=== PATIENT | male | born 1955 | race Caucasian/White ===

== ENCOUNTER → 2018-12-30 09:35 | Outpatient (CLI) | payer BC ==
[~2018-12-30 09:35] MED LIST: ASPIRIN81 MG PO; HYDROCODON-ACE1 EA10 PO; LISINOPRIL5 MG PO; LOPRESSOR25 MG PO; NIASPAN500 MG PO; PLAVIX75 MG PO; ZOCOR40 MG PO
--- NOTE | 2019-01-05 18:38 | ST ---
PATIENT:MAGGY UP MEDICAL RECORD: [id number] SEX: M LOCATION:[facility] ORDER #: ADMISSION DATE: 12/30/18 AGE OF PATIENT: 63 REFERRING PHYSICIAN: INTERPRETING PHYSICIAN: LINUS VASQUEZ MD DATE OF SERVICE: 12/30/2018 Nuclear Stress Test INDICATIONS: Angina and coronary artery disease, hypertension, and hyperlipidemia. PROCEDURE IN DETAIL: He was exercised on standard Lexiscan protocol with 32 mCi of sestamibi injected at peak stress, 11 mCi used previously for rest images. FINDINGS: Gated SPECT reveals preserved ejection fraction at 52% with good wall motioning and thickening and brightening throughout all segments. SPECT Imaging: Cardiolite was used as a myocardial perfusion agent, significant reversible changes inferiorly as well as laterally, which includes basal, mid apical, and inferior segments as well as the basal lateral and mid lateral segments. The degree of reversibility is moderate. The amount of myocardial involved is large. OVERALL IMPRESSION: This is a high-risk nuclear stress test with a large amount of myocardium involved inferiorly and laterally suggestive of multivessel coronary artery disease. We will proceed with coronary angiography as a follow-up study. TRANSINT:[id number] Voice Confirmation ID: [id number] DOCUMENT ID: [id number] LINUS VASQUEZ MD at 1838 CC: DC MOSS MD [id number] DICTATION DATE: 12/31/18 1225 INGREDIENT MIXER: 01/01/19 0043 DEP CLI 12/30/18 [place] [id number] [place] [id number]
[2019-01-06 09:35] VITALS: BMI 31.8
== END | disposition home or self-care (01) ==
LOC: D.HCCARDIO 09:35
PROVIDERS: ATTEND Internal Medicine Interventional Cardiology
DX: I25.10 Atherosclerotic heart disease of native coronary artery without angina pectoris (principal)

== ENCOUNTER 2019-01-06 08:45 | Outpatient (CLI) | payer BC ==
[~2019-01-06] VITALS: Ht 162.6 cm; Wt 84.1 kg
--- NOTE | ~2019-01-06 | HEMODYNAMI ---
PATIENT:MAGGY UP MEDICAL RECORD: [id number] : 57 LOCATION:D.CAT ADMISSION DATE: 01/06/19 Generatedon:01/06/201911:14 Patient name: MAGGY UP Patient #: [id number] SSN: : 1955 Date of study: 01/06/2019 Page: Of Hemodynamic Procedure Report Patient Data Patient Demographics Procedure consent was obtained First Name: MAGGY Gender: Male Last Name: ANNEL : 1955 [facility] Initial: WALKER Age: 63 year(s) Patient #: [id number] Race: Unknown Additional ID: [id number] Contact details Address: [address] [place] [address] State: [place] City: [place] Zip code: [address] Admission Admission Data Admission Date: 01/06/2019 Admission Time: 8:45 Lab Results Lab Result Date: 01/06/2019 Lab Result Time: 0:00 Biochemistry Name Units Result Min Max BUN mg/dl 13 --(--*-)-- 7 18 Creatinine mg/dl 1.2 --(---*)-- 0.6 1.3 CBC Name Units Result Min Max Hemoglobin g/dl 16.6 --(---*)-- 13.5 17.5 Procedure Procedure Types Cath Procedure Diagnostic Procedure LHC LHC w/Coronaries w/Grafts Sedation Charges Moderate Sedation up to 15 minutes PCI Procedure Coronary Stent Coronary Stent Initial x2 Procedure Description Procedure Date Procedure Date: 01/06/2019 Procedure Start Time: 10:49 Procedure End Time: 11:13 Procedure Staff Name Function Wilson Velarde MD Performing Physician Aurea Strong RT Monitor Jose Spear RT Scrub Jacqueline Guadalupe RT Scrub Ifrah Gilbert RN Nurse Procedure Data Cath Procedure Fluoroscopy Diagnostic fluoroscopy Total fluoroscopy Time: 6.1 time: 6.1 min min Diagnostic fluoroscopy Total fluoroscopy dose: dose: 1187 mGy 1187 mGy Contrast Material Contrast Material Type Amount (ml) Isovue 300 130 Entry Location Entry Primary Successful Side Size Upsize Upsize Entry Closure Succes sful Closure Location (Fr) 1 (Fr) 2 (Fr) Remarks Device Remarks Femoral Right 5 Fr 6 Fr Exoseal artery Short Estimated blood loss: 5 ml Diagnostic catheters Device Type Used For End Catheter Placement MULTIPACK Pigtail 5 Fr LV Angiography catheter MULTIPACK JL 4.0 5Fr Left Coronary catheter Angiography MULTIPACK 3DRC 5Fr Multi-vessel catheter Angiography Procedure Complications No complications Procedure Medications Medication Administration Route Dosage 0.9% NaCl I.V. 100 ml/hr Oxygen etCO2 Nasal cannula 2 l/min Lidocaine 2% added to field 20 Heparin Flush Bag added to field 2 bags (1000units/500ml NS) Versed I.V. 2 mg Fentanyl I.V. 50 mcg Heparin Bolus I.V. 4000 units Integrilin (Bolus I.V. 7.3 ml 2mg/ml) Nitroglycerin IC/IA I.C. 200 mcg Plavix P.O. 600 mg Fentanyl I.V. 50 mcg Hemodynamics Rest HGB: 16.6 (g/dl) Heart Rate: 63 (bpm) Pressure Samples Time Site Value (mmHg) Purpose Heart Use Rate(bpm) 10:52 LV 125/10,122 Snapshot 67 Snapshots Pre Cath Intra NCS Post Cath Vital Signs Time Heart Resp SPO2 etCO2 NIBP Rhythm Pain Sedation Rate (ipm) (%) (mmHg) (mmHg) Status Level (bpm) 10:33:53 60 16 99 32.2 107/65(88) NSR 0 (11) 10(A) , No pain 10:38:38 63 13 98 25.5 123/76(98) NSR 0 (11) 10(A) , No pain 10:42:24 63 12 98 33 116/73(98) NSR 0 (11) 10(A) , No pain 10:49:58 62 10 97 37.5 108/61(84) NSR 0 (11) 9(A) , No pain 10:54:57 62 10 98 36.8 Measuring NSR 0 (11) 9(A) , No pain 11:03:52 64 10 98 38.2 Measuring NSR 0 (11) 9(A) , No pain 11:06:01 62 12 96 36.7 104/52(87) NSR 0 (11) 9(A) , No pain 11:10:15 63 10 97 39 99/61(78) NSR 0 (11) 10(A) , No pain Medications Time Medication Route Dose Verified Delivered Reason Notes Effectiveness by by 10:35:21 0.9% NaCl I.V. 100 Wilson Mckeona used for ml/hr Prachi Gilbert vice president of manufacturing 10:35:27 Oxygen etCO2 2 Wilson Mckeona used for Nasal l/min Prachi Gilbert procedure cannula RN 10:35:33 Lidocaine 2% added 20ml Wilson Rachel for local to vial Prachi Velarde MD anesthetic field 10:35:38 Heparin Flush added 2 Wilson Talbertrey used for Bag to bags Prachi Velarde MD procedure (1000units/500ml field NS) 10:41:38 Versed I.V. 2 mg Wilson Mckeona for sedation Prachi Gilbert RN 10:41:51 Fentanyl I.V. 50 Wilson Mckeona for sedation mcg Prachi Gilbert RN 10:46:29 Fentanyl I.V. 50 Wilson Mckeona for sedation mcg Prachi Gilbert RN 11:00:09 Heparin Bolus I.V. 4000 Wilson Rg for verif ied units Prachi Gilbert anticoagulation with Dr. ASAF Velarde 11:02:24 Integrilin I.V. 7.3 Wilson Rg for waste d (Bolus 2mg/ml) ml Prachi Gilbert antiplatelet 2.7mL RN therapy 11:02:42 Nitroglycerin I.C. 200 Wilson Rachel for IC/IA mcg Prachi Velarde MD vasodilation 11:04:58 Plavix P.O. 600 Wilson Rg for mg Prachi Gilbert antiplatelet RN therapy Procedure Log Time Note 10:26:34 Diagnostic Cath Status : Elective 10:27:39 Ifrah Gilbert RN sent for patient. Start room use. 10:27:40 Time tracking: Regular hours (M-F 7:00 - 5:00) 10:27:44 Plan of Care:Hemodynamics will remain stable., Cardiac rhythm will remain stable., Comfort level will be maintained., Respiratory function will remain adequate., Patient/ family verbilizes understanding of procedure., Procedure tolerated without complication., Recovers from procedure without complications.. 10:28:15 Patient received from Pre/Post Procedure Room to CCL 2 Alert and oriented. Tansferred to table in Supine position. 10:28:17 Warm blankets applied, and tracey hugger turned on for patient comfort. 10:28:17 Correct patient and procedure confirmed by team. 10:28:19 Signed procedure consent form obtained from patient. 10:28:20 ECG and BP/O2 sat monitors applied to patient. 10:33:02 Vital chart was started 10:33:29 Baseline sample Acquired. 10:33:33 Rhythm: sinus rhythm 10:33:36 Full Disclosure recording started 10:34:02 H&P Date Dictated: 12/18/2018 Within 30 days and on chart., H&P Addendum completed by physician on day of procedure. (MUST COMPLETE FOR ALL OUTPATIENTS). 10:34:04 Pre-procedure instructions explained to patient. 10:34:04 Pre-op teaching completed and patient verbalized understanding. 10:34:07 Family in patients room. 10:34:09 Patient NPO since Midnight. 10:34:11 Is the patient allergic to Iodine/contrast media? No. 10:34:20 Is patient on blood thinner?No 10:34:22 Patient diabetic? No. 10:34:25 Previous problem with sedation/anesthesia? No ? 10:34:27 Snore? Yes 10:34:27 Sleep apnea? Yes 10:34:29 Deviated septum? No 10:34:29 Opens mouth fully? Yes 10:34:30 Sticks out tongue? Yes 10:34:36 Airway obstruction? No ? 10:34:39 Dentures? No ? 10:34:43 Pre procedure: right dorsailis pedis pulse 2+ Normal; easily identifiable; not easily obliterated 10:34:45 Pre procedure: left dorsailis pedis pulse 2+ Normal; easily identifiable; not easily obliterated 10:34:46 Patient pain scale 0/10 ?. 10:34:58 IV patent on arrival in left forearm with 0.9% NaCl at [facility]. 10:35:01 Lab results completed and on chart. 10:35:09 Right groin area was prepped with chlora-prep and draped in sterile fashion 10:35:11 Alarms reviewed by R. N. 10:35:11 Sharps counted by scrub and verified by R.N. 10:35:21 0.9% NaCl 100 ml/hr I.V. was administered by Ifrah Vladimir RN; used for procedure; 10:35:27 Oxygen 2 l/min etCO2 Nasal cannula was administered by Ifrah Gilbert RN; used for procedure; 10:35:33 Lidocaine 2% 20ml vial added to field was administered by Wilson Velarde MD; for local anesthetic; 10:35:38 Heparin Flush Bag (1000units/500ml NS) 2 bags added to field was administered by Wilson Velarde MD; used for procedure; 10:39:58 Physician arrived 10:39:58 --------ALL STOP TIME OUT------ 10:39:59 Final Timeout: patient, procedure, and site verified with staff and physician. All members of the team are in agreement. 10:40:02 Right groin site verified by team. 10:40:05 Fire Safety Assessment: A--An alcohol-based skin anteseptic being used preoperatively., C--Open oxygen or nitrous oxide is being used., D--An ESU, laser, or fiber-optic light is being used. 10:40:08 Physical assessment completed. ASA score P 2 - A patient with mild systemic disease as per Wilson Velarde MD. 10:41:38 Versed 2 mg I.V. was administered by Ifrah Gilbert RN; for sedation; 10:41:51 Fentanyl 50 mcg I.V. was administered by Ifrah Gilbert RN; for sedation; 10:43:38 2) 60-89 Mildly reduced kidney function, and other findings (as for stage 1) point to kidney disease. 10:43:58 Maximum allowable contrast does (3.7 X eGFR X 0.75)180 ml. 10:44:02 Sedation plan: IV Moderate Sedation Medication:Versed, Fentanyl 10:44:19 Lab Result : Creatinine 1.2 mg/dl 10:44:19 Lab Result : BUN 13 mg/dl 10:44:19 Lab Result : Hemoglobin 16.6 g/dl 10:44:35 Use device set Femoral Dx 10:44:36 ACIST Syringe (02447) opened to sterile field. 10:44:36 Bag Decanter () opened to sterile field. 10:44:36 Medline Cath Pack ([id number]) opened to sterile field. 10:44:38 ACIST Hand Control (07877) opened to sterile field. 10:44:38 ACIST Manifold (23700) opened to sterile field. 10:44:38 DIAGNOSTIC Multipack 5Fr catheter set ([id number]) opened to sterile field. 10:44:39 Tegaderm 4 x 4 (1626W) opened to sterile field. 10:44:41 EMERALD Guide Wire (502-669) opened to sterile field. 10:44:41 SHEATH 5FR Marcellus (JZZ653) opened to sterile field. 10:45:06 EXOSEAL 5Fr (EX500) opened to sterile field. 10:46:29 Fentanyl 50 mcg I.V. was administered by Ifrah Gilbert RN; for sedation; 10:48:30 Procedure started. 10:49:44 Local anesthetic to right femoral artery with Lidocaine 2% by Wilson Velarde MD.INITIAL ACCESS ONLY 10:49:52 A 5 Fr sheath was inserted into the Right Femoral artery 10:51:42 A MULTIPACK Pigtail 5 Fr catheter was advanced over the wire and used for LV Angiography. 10:52:41 LV hemodynamics recorded. 10:52:42 LV gram done using GUZMAN 10:52:44 Injector settings: Ml/sec: 5, Volume: 15, 10:52:57 EF : 50 % 10:53:00 Catheter removed. 10:53:06 A MULTIPACK JL 4.0 5Fr catheter was advanced over the wire and used for Left Coronary Angiography. 10:53:30 LCA angiography performed. 10:53:33 Injector settings: Ml/sec: 3, Volume: 6, 10:54:33 Catheter removed. 10:54:38 A MULTIPACK 3DRC 5Fr catheter was advanced over the wire and used for Multi-vessel Angiography. 10:55:36 MARTIN to Circ angiography performed. 10:55:48 RCA angiography performed. 10:55:55 Injector settings: Ml/sec: 3, Volume: 6, 10:58:27 Catheter removed. 10:58:49 GUIDE 6FR XBLAD 4.0 catheter ([id number]) opened to sterile field. 10:58:49 INFLATOR Merit BasixCompak (LW1168) opened to sterile field. 10:58:50 CHOICE PT Extra Support 182cm wire ([id number]) opened to sterile field. 10:58:55 SHEATH 6FR Marcellus (HSG251) opened to sterile field. 10:58:59 Proceeding to intervention. 10:59:07 Sheath upsized to a 6 Fr Short. 11:00:09 Heparin Bolus 4000 units I.V. was administered by Ifrah Gilbert RN; for anticoagulation; verified with Dr. Velarde 11:01:57 6 Fr xblad 4 guide catheter was inserted over the wire 11:02:02 choice pt wire advanced. 11:02:03 Wire advanced across lesion. 11:02:24 Integrilin (Bolus 2mg/ml) 7.3 ml I.V. was administered by Ifrah Gilbert RN; for antiplatelet therapy; wasted 2.7mL 11:02:39 Place stent Inflation Number: 1 A NELIA RX 2.5 x 15 stent ([id number]) was prepped and advanced across the Prox LAD 85. The stent was deployed at 15 KAMAR for 0:10 (min:sec) . 11:02:42 Nitroglycerin IC/IA 200 mcg I.C. was administered by Wilson Velarde MD; for vasodilation; 11:04:58 Plavix 600 mg P.O. was administered by Ifrah Gilbert RN; for antiplatelet therapy; 11:05:08 Stent catheter was removed intact over wire. 11:05:11 Wire removed. 11:05:12 Guide catheter removed. 11:05:26 GUIDE 6FR AR 2.0 catheter ([id number]) opened to sterile field. 11:05:37 6 Fr ar 2 guide catheter was inserted over the wire 11:05:43 choice pt wire advanced. 11:08:28 Inflation number: 1 The stent balloon was then re-inflated across the R PDA to 7 KAMAR for 0:10 (min:sec) . 11:08:32 Stent catheter was removed intact over wire. 11:09:52 Place stent Inflation Number: 2 A NELIA RX 2.5 x 08 stent ([id number]) was prepped and advanced across the R PDA 80. The stent was deployed at 11 KAMAR for 0:10 (min:sec) . 11:10:36 Stent catheter was removed intact over wire. 11:10:36 Wire removed. 11:10:37 Guide catheter removed. 11:11:21 EXOSEAL 6Fr (EX600) opened to sterile field. 11:11:32 Sheath removed intact; hemostasis achieved with Exoseal to the Right Femoral artery. 11:11:34 Procedure ended.(Physican Out) 11:11:44 Fluoroscopy time 06.10 minutes. 11:11:48 Fluoroscopy dose: 1187 mGy 11:11:48 Flurop Dose total: 1187 11:11:55 Contrast amount:Isovue 300 130ml. 11:12:06 Sharps counted by scrub and verified by R.N. 11:12:23 Insertion/operative site no bleeding no hematoma. 11:12:26 Post-op/insertion site Right Femoral artery dressed using a 4 x 4 and Tegaderm. 11:12:29 Post procedure rhythm: unchanged. 11:12:32 Estimated blood loss: 5 ml 11:12:33 Post procedure instruction explained to patient.Patient verbalizes understanding. 11:12:33 Patient needs reinforcement of post procedure teaching. 11:13:01 Procedure type changed to Cath procedure, Diagnostic procedure, LHC, LHC w/Coronaries w/Grafts, Sedation Charges, Moderate Sedation up to 15 minutes, PCI procedure, Coronary Stent, Coronary Stent Initial x2 11:13:01 Procedure and supply charges have been captured, reviewed, submitted and are correct. 11:13:05 Procedure Complication : No complications 11:13:08 Vital chart was stopped 11:13:08 See physician's report for complete and final results. 11:13:11 Report given to Pre/Post Procedure Room. 11:13:13 Patient transfered to Pre/Post Procedure Room with Stretcher. 11:13:16 Procedure ended. 11:13:16 Full Disclosure recording stopped 11:13:24 ACC-PCI Only Patient was given prescriptions, or instructed by Wilson Velarde MD to start/continue the following medications upon discharge: Plavix 11:13:25 End room use (Document Last) Intervention Summary Intervention Notes Time ActionType Lesion and Equipment Used Action# Pressure Duration Attributes 11:02:39 Place stent Prox LAD NELIA RX 2.5 x 1 15 00:10 15 stent ([id number]) 11:08:28 Reinflate R PDA NELIA RX 2.5 x 1 7 00:10 stent 15 stent balloon ([id number]) 11:09:52 Place stent R PDA NELIA RX 2.5 x 2 11 00:10 08 stent ([id number]) Device Usage Item Name Manufacture Quantity Catalog Number Hospital Part Current M inimal Lot# / Charge Number Stock Stock Serial# Code ACIST Syringe Acist 1 59580 175730 721105 115924 2 0 (68434) Medical Systems Inc Bag Decanter Microtek 1 169866 53763 875409 5 () Medical Inc. Medline Cath Medline 1 [id number] 322694 47836 499308 5 Pack ([id number]) ACIST Hand Acist 1 38838 236197 537858 275890 5 Control Medical (64686) Systems Inc ACIST Manifold Acist 1 81442 279437 222967 985125 5 (14227) Medical Systems Inc DIAGNOSTIC Cardinal 1 MP4745 144727 03309 280527 3 0 Multipack 5Fr Health catheter set (CM0305) Tegaderm 4 x 4 3M 1 1626W 318008 446810 731713 5 (1626W) EMERALD Guide Cardinal 1 502-455 931421 621668 164701 5 Wire (502-455) Health SHEATH 5FR Terumo 1 UPP264 210777 958526 188616 5 Marcellus (MUT418) EXOSEAL 5Fr Cardinal 1 EX500 765626 494018 269932 1 0 (EX500) Health MULTIPACK Cardinal 1 866687 5 Pigtail 5 Fr Health catheter MULTIPACK JL Cardinal 1 516072 5 4.0 5Fr Health catheter MULTIPACK 3DRC Cardinal 1 162070 5 5Fr catheter Health GUIDE 6FR Cardinal 1 [id number] 501721 562049 891688 3 XBLAD 4.0 Health catheter (14058919) INFLATOR Merit Merit 1 LW3785 262137 180809 698621 1 5 Factor.io (RL5097) CHOICE PT [place] 1 [id number] 293965 031933 160420 5 Extra Support Scientific 182cm wire ([id number]) SHEATH 6FR Terumo 1 JGW249 505347 262809 567762 4 0 Marcellus (ABZ467) NELIA RX 2.5 x Medtronic 1 [id number] 675564 5481630 203246 5 [id number] 15 stent ([id number]) GUIDE 6FR AR Medtronic 1 OB0SB57 613112 76441 105536 1 2.0 catheter (OA0MX23) NELIA RX 2.5 x Medtronic 1 [id number] 981758 7188493 485731 5 [id number] 08 stent ([id number]) EXOSEAL 6Fr Cardinal 1 EX600 719851 682088 854783 1 0 (EX600) Health Signature Audit [place] Stage Time Signature Unsigned Intra-Procedure 01/06/2019 Aurea Strong 11:14:39 AM RT(R) Signatures Performing Physician : Signature : Wilson Velarde MD Date : Time : Monitor : Aurea Strong RT Signature : Date : Time : Nurse : Ifrah Gilbert RN Signature : Date : Time : [place] [address] [place] [address]
--- NOTE | ~2019-01-06 | OP ---
PATIENT NAME: MAGGY UP MEDICAL RECORD: [id number] :57 LOCATION:D.CAT ADMISSION DATE: SURGEON: LINUS VASQUEZ MD DATE OF OPERATION: 01/06/2019 PROCEDURES: 1. PTCA stent LAD. 2. PTCA stent to RCA. 3. Left heart catheterization. 4. Selective coronary angiography. 5. MARTIN angiography. 6. Left ventriculogram. INDICATION: Unstable angina and coronary artery disease. PROCEDURE IN DETAIL: After informed status obtained and after a detailed description of risks, benefits as well as alternative therapies, the patient elected to proceed with angiogram and angioplasty. The right femoral area was prepped and draped in normal sterile fashion. Right femoral artery was cannulated via modified Seldinger technique with placement of 6-Sudanese sheath. All catheters exchanged through this sheath. FINDINGS: The left ventriculogram was performed in a standard 30-degree GUZMAN view, reveals good cardiac wall motion, ejection fraction 50%. SELECTIVE CORONARY ANGIOGRAPHY: 1. Left main is with no significant angiographic disease. 2. Left anterior descending has 85% to 90% stenosis in the mid vessel. 3. MARTIN to the LAD is closed. 4. Left circumflex has 90% stenosis proximally. 5. MARTIN to the circumflex is open and it appears that the MARTIN was in a skipped fashion and it is closed at the anastomosis of the LAD, but does continue on patently to the circumflex. Distal circumflex is patent. 6. The right coronary artery has previously placed stents in the distal aspect; however, the PDA has a 90% stenosis at its ostium. This correlates with the inferior perfusion defect on nuclear stress testing. PTCA STENT OF THE LAD AND RCA: LAD was addressed with a 2.5 x 15 mm Minter and the RCA, PDA with a 2.5 x 8 mm Rony. Result was 0% residual stenosis. OVERALL IMPRESSION: Successful PTCA stent of the RCA PDA as well as the LAD, both going from 85% to 90% initial stenosis to 0% residual. TRANSINT:[id number] Voice Confirmation ID: [id number] DOCUMENT ID: [id number] LINUS VASQUEZ MD CC: [id number] DICTATION DATE: 01/06/19 1115 MENTAL HYGIENIST: 01/06/19 1123 REG [facility] [address] [place] [address]
[2019-01-06] MEDS ORDERED: HYDROCODON-ACE1 EA10 PO (09:16)
[2019-01-06] MEDS ORDERED: LISINOPRIL5 MG PO (09:17)
[2019-01-06] MEDS ORDERED: ZOCOR40 MG PO (09:17)
[2019-01-06] MEDS ORDERED: LOPRESSOR25 MG PO (09:17)
[2019-01-06] MEDS ORDERED: ASPIRIN81 MG PO (09:21)
[2019-01-06] MEDS ORDERED: NIASPAN500 MG PO (09:21)
[2019-01-06 09:35] VITALS: BP 130/68; Ht 162.6 cm; Wt 84.1 kg
[2019-01-06 10:07] LABS: BASOPHILS 0.4 % (0-2); EOSINOPHILS 5.1 % (0-7); HEMATOCRIT 47.2 % (42.0-54.0); HEMOGLOBIN 16.6 g/dL (13.5-17.5); IMMATURE GRANULOCYTES 0.1 % (0-5); LYMPHOCYTES 31.3 % (15-50); MCH 31.6 pg (26.0-34.0); MCHC 35.2 g/dL (31.0-37.0); MCV 89.9 fL (80.0-100.0); MEAN PLATELET VOLUME 9.9 fL (7.4-10.4); MONOCYTES 9.9 % (2-11); NEUTROPHILS 53.2 % (40-80); PLATELET COUNT 159 10x3/uL (130-400); RBC 5.25 10x6/uL (4.20-6.10); RDW 12.8 % (11.5-14.5); WBC 7.5 10x3/uL (4.8-10.8)
[2019-01-06 10:12] LABS: ANION GAP 9.2 mmol/L (8-16); CALCIUM 8.8 mg/dL (8.5-10.1); CARBON DIOXIDE 29.1 mmol/L (21.0-32.0); CREATININE - SERUM 1.2 mg/dL (0.6-1.3); POTASSIUM - SERUM 4.3 mmol/L (3.5-5.1)
--- NOTE | 2019-01-06 11:30 | NUR ---
PT RECEIVED VIA STRETCHER FROM [employer] FOR RECOVERY. PT SLEEPING BUT VERBALLY AROUSABLE. 6FR EXOCELE TO R GROIN, AREA SOFT TO TOUCH, DRESSING CDI NO BLEEDING OR SWELLING NOTED. LEG PINK AND WARM, PEDAL PULSES PALPABLE. IV PATENT INFUSING VIA ORDERS. HR NSR RATE 60, BP 125/70, 02 PLACED AT 2L/NC, SAT 99. PT INSTRUCTED TO KEEP HEAD ON PILLOW AND LEG STRAIGHT, HE VERBALIZED UNDERSTANDING. HE C/O SLIGHT HEARTBURN, EXPLAINED THAT IT IS DUE TO THE PLAVIX, WATER GIVEN. BEAR HUGGER ON, PT C/O OF "FREEZING". CALL LIGHT IN REACH, DENIES ANY OTHER DISCOMFORT OR NEEDS
[2019-01-06] MEDS ORDERED: PLAVIX75 MG PO (11:33)
--- NOTE | 2019-01-06 12:00 | NUR ---
PT SLEEPING COMFORTABLY, R GROIN SOFT, DRESSING REMAINS CDI NO BLEEDING OR HEMATOMA NOTED. LEG PINK AND WARM, PEDAL PULSES PALPABLE. VSS. CALL LIGHT IN REACH, FRIEND AT BEDSIDE.
--- NOTE | 2019-01-06 12:45 | NUR ---
PT STILL SLEEPING, VERBALLY AROUSABLE. R GROIN REMAINS SOFT, DRESSING CDI NO BLEEDING OR HEMATOMA NOTED. VSS. FRIEND REMAINS AT BEDSIDE, CALL LIGHT IN REACH.
--- NOTE | 2019-01-06 13:15 | NUR ---
PT WAKING UP SOME, DENIES PAIN OR DISCOMFORT. BEAR HUGGER TURNED OFF PER PT REQUEST. NO CHANGE IN GROIN, DRESSING REMAINS CDI NO BLEEDING OR SWELLING NOTED. R LEG PINK AND WARM, PEDAL PULSES PALPABLE. HR 63, BP 92/59. FLUIDS OPENED FOR BOLUS. CALL LIGHT IN REACH
--- NOTE | 2019-01-06 13:45 | NUR ---
PT AWAKE VISITING WITH FRIEND. GROIN SOFT, DRESSING CDI NO BLEEDING OR SWELLING NOTED. PEDAL PULSES PALPABLE. VSS. PT DENIES PAIN OR NEEDS AT THIS TIME. COLA SERVED.
--- NOTE | 2019-01-06 14:17 | NUR ---
SANDWICH TRAY OFFERED, REFUSED AT THIS TIME. 650 CC CLEAR YELLOW URINE EMPTIED FROM URINAL. GROIN REMAINS W/O BLEDDING OR SWELLING. LEP PINK AND WARM, PEDAL PULSES PALPABLE. CALL LIGHT IN REACH
--- NOTE | 2019-01-06 14:45 | NUR ---
O2 REMOVED, PT RESTING W EYES CLOSED. DENIES PAIN OR NEEDS AT THIS TIME. GROIN W/O BLEEDING OR SWELLING. CALL LIGHT IN REACH. VSS
--- NOTE | 2019-01-06 15:00 | NUR ---
DISCHARGE INSTRUCTIONS REVIEWED W PT AND FRIEND, BOTH VERBALIZED UNDERSTANDING. IV REMOVED W CATH INTACT, MONITORS REMOVED. 1510 PT UP TO DRESS FOR DISCHARGE.
--- NOTE | 2019-01-06 15:15 | NUR ---
PT TO BR VIA WC, VOIDING W/O DIFFICULITY. PT DISCHARGED TO PRIVATE VEHICLE VIA WC WITH ALL BELONGINGS
== END 2019-01-06 15:20 | disposition home or self-care (01) ==
LOC: D.CATH 08:45
PROVIDERS: ATTEND Internal Medicine Interventional Cardiology
DX: I25.110 Atherosclerotic heart disease of native coronary artery with unstable angina pectoris (principal); I25.710 Atherosclerosis of autologous vein coronary artery bypass graft(s) with unstable angina pectoris; Z95.5 Presence of coronary angioplasty implant and graft; Z01.812 Encounter for preprocedural laboratory examination

== ENCOUNTER → 2019-09-08 09:49 | Outpatient (CLI) | payer MEDICAID ==
[2019-01-06 09:35] VITALS: BMI 31.8
== END | disposition home or self-care (01) ==
LOC: D.HCCARDIO 09:49
PROVIDERS: ATTEND Internal Medicine Cardiovascular Disease
DX: I25.10 Atherosclerotic heart disease of native coronary artery without angina pectoris (principal)

== ENCOUNTER 2019-09-21 07:40 | Outpatient (CLI) | payer MEDICAID ==
[~2019-09-21] VITALS: Ht 162.6 cm; Wt 81.4 kg
--- NOTE | ~2019-09-21 | HEMODYNAMI ---
PATIENT:MAGGY UP MEDICAL RECORD: [id number] : 57 LOCATION:[facility] ADMISSION DATE: 09/21/19 Generatedon:09/21/201912:41 Patient name: MAGGY UP Patient #: [id number] SSN: : 1955 Date of study: 09/21/2019 Page: Of Hemodynamic Procedure Report Patient Data Patient Demographics Procedure consent was obtained First Name: MAGGY Gender: Male Last Name: ANNEL : 1955 [facility] Initial: WALKER Age: 64 year(s) Patient #: [id number] Race: Unknown Additional ID: [id number] Contact details Address: [address] [place] [address] State: [place] City: [place] Zip code: [address] Past Medical History Allergies: No known allergies Admission Admission Data Admission Date: 09/21/2019 Admission Time: 7:40 Arrival Date: 09/21/2019 Arrival Time: 0:00 Height (in.): 64 BSA: 1.86 (m2) Height (cm.): 162.56 BMI: 30.65 (kg/m2) Weight (lbs.): 178.58 Weight (kg.): 81 Lab Results Lab Result Date: 09/21/2019 Lab Result Time: 0:00 Biochemistry Name Units Result Min Max BUN mg/dl 14 --(--*-)-- 7 18 Creatinine mg/dl 1.1 --(--*-)-- 0.6 1.3 eGFR ml/min 72 *-(----)-- 90 120 NONAFRICAN CBC Name Units Result Min Max Hematocrit % 48.1 --(--*-)-- 42 54 Hemoglobin g/dl 15.9 --(--*-)-- 13.5 17.5 Procedure Procedure Types Cath Procedure Diagnostic Procedure LHC LHC w/Coronaries w/Grafts FFR/IVUS FFR Initial FFR Additional Sedation Charges Moderate Sedation up to 15 minutes PCI Procedure Coronary Stent Coronary Stent Initial x2 Hemochron ACT Test Procedure Description Procedure Date Procedure Date: 09/21/2019 Procedure Start Time: 12:10 Procedure End Time: 12:37 Procedure Staff Name Function Wilson Velarde MD Performing Physician Aspen Stern RT Monitor Jacqueline Guadalupe RT Scrub Ifrah Gilbert RN Nurse Procedure Data Cath Procedure Fluoroscopy Diagnostic fluoroscopy Total fluoroscopy Time: 5.4 time: 5.4 min min Diagnostic fluoroscopy Total fluoroscopy dose: 810 dose: 810 mGy mGy Contrast Material Contrast Material Type Amount (ml) Isovue 300 132 Entry Location Entry Primary Successful Side Size Upsize Upsize Entry Closure Succes sful Closure Location (Fr) 1 (Fr) 2 (Fr) Remarks Device Remarks Femoral Right 5 Fr 6 Fr Exoseal artery Short Estimated blood loss: 10 ml Diagnostic catheters Device Type Used For End Catheter Placement MULTIPACK Pigtail 5 Fr Procedure catheter MULTIPACK JL 4.0 5Fr Procedure catheter MULTIPACK 3DRC 5Fr Procedure catheter DIAGNOSTIC AR2 MOD 5 Fr Procedure catheter ([id number]) Procedure Complications No complications Procedure Medications Medication Administration Route Dosage 0.9% NaCl I.V. 100 ml/hr Oxygen etCO2 Nasal cannula 2 l/min Lidocaine 2% added to field 20 Heparin Flush Bag added to field 2 bags (1000units/500ml NS) Versed I.V. 2 mg Fentanyl I.V. 50 mcg Versed I.V. 2 mg Fentanyl I.V. 50 mcg Heparin Bolus I.V. 4000 units Integrilin (Bolus I.V. 7.3 ml 2mg/ml) Integrilin (Bolus wasted 2.7 ml 2mg/ml) Plavix P.O. 600 mg Hemodynamics Rest BSA: 1.86 (m2) HGB: 15.9 (g/dl) O2 Consumption: Estimated: 204.89 (ml/min) O2 Co nsumption indexed: Estimated:110.16 (ml/min/m) Heart Rate: 52 (bpm) Snapshots Pre Cath Intra NCS Post Cath Vital Signs Time Heart Resp SPO2 etCO2 NIBP (mmHg) Rhythm Pain Sedation Rate (ipm) (%) (mmHg) Status Level (bpm) 12:01:03 52 10 98 38.5 138/77(90) SB 0 (11) 10(A) , No pain 12:05:23 57 30 99 21.1 138/79(110) SB 0 (11) 10(A) , No pain 12:09:41 57 20 99 12.8 128/76(95) SB 0 (11) 10(A) , No pain 12:13:51 63 14 97 33.2 118/75(89) NSR 0 (11) 10(A) , No pain 12:18:05 64 16 97 40.8 127/71(100) NSR 0 (11) 9(A) , No pain 12:22:21 64 35 98 43 121/71(87) NSR 0 (11) 9(A) , No pain 12:26:37 64 18 99 44.5 118/68(82) NSR 0 (11) 9(A) , No pain 12:30:51 64 12 100 43 118/66(88) NSR 0 (11) 10(A) , No pain 12:35:01 65 16 100 36.9 138/84(112) NSR 0 (11) 10(A) , No pain Medications Time Medication Route Dose Verified Delivered Reason Notes Effectiveness by by 12:02:03 0.9% NaCl I.V. 100 Wilson Ifrah used for ml/hr Prachi Gilbert relief map modeler 12:02:09 Oxygen etCO2 2 Wilson Ifrah used for Nasal l/min Prachi Gilbert procedure cannula RN 12:02:14 Lidocaine 2% added 20ml Wilson Wilson for local to vial Prachi Velarde MD anesthetic field 12:02:18 Heparin Flush added 2 Wilson Wilson used for Bag to bags Prachi Velarde MD procedure (1000units/500ml field NS) 12:09:47 Versed I.V. 2 mg Wilson Ifrah for sedation Prachi Gilbert RN 12:09:54 Fentanyl I.V. 50 Wilson Ifrah for sedation mcg Prachi Gilbert RN 12:14:36 Versed I.V. 2 mg Wilson Ifrah for sedation Prachi Gilbert RN 12:14:42 Fentanyl I.V. 50 Wilson Ifrah for sedation mcg Prachi Gilbert RN 12:20:00 Heparin Bolus I.V. 4000 Wilson Ifrah for verif ied units Prachi Gilbert anticoagulation with Dr. ASAF Velarde 12:20:14 Integrilin I.V. 7.3 Wilson Ifrah for (Bolus 2mg/ml) ml Prachi Gilbert antiplatelet RN therapy 12:34:26 Integrilin wasted 2.7 Wilson Rg for (Bolus 2mg/ml) ml Prachi Gilbert antiplatelet RN therapy 12:34:32 Plavix P.O. 600 Wilson Rg for mg Prachi Gilbert antiplatelet RN therapy Procedure Log Time Note 11:35:41 Informed consent obtained and on chart 11:36:02 Procedure Status Elective Heart Cath (OP). 11:36:03 Time tracking: Regular hours (M-F 7:00 - 5:00) 11:36:07 Plan of Care:Hemodynamics will remain stable., Cardiac rhythm will remain stable., Comfort level will be maintained., Respiratory function will remain adequate., Patient/ family verbilizes understanding of procedure., Procedure tolerated without complication., Recovers from procedure without complications.. 11:36:09 Ifrah Gilbert RN sent for patient. Start room use. 11:36:12 H&P Date Dictated: 09/21/2019 New H&P dictated by physician.. 11:38:29 Patient allergic to No known allergies 11:38:56 Lab Result : BUN 14 mg/dl 11:38:56 Lab Result : Creatinine 1.1 mg/dl 11:38:56 Lab Result : Hemoglobin 15.9 g/dl 11:38:56 Lab Result : eGFR NONAFRICAN 72 ml/min 11:38:56 Lab Result : Hematocrit 48.1 % 11:39:07 Patient Weight : 178.58 lbs 11:39:09 Patient Height : 64 inches 11:39:18 Arrival Date: 09/21/2019 12:00:00 AM 11:39:52 Procedure type changed to Cath procedure, Diagnostic procedure, LHC, LHC w/Coronaries w/Grafts, FFR/IVUS, FFR Initial, FFR Additional, Sedation Charges, Moderate Sedation up to 15 minutes, PCI procedure, Coronary Stent, Coronary Stent Initial x2, Hemochron ACT Test 11:40:43 Stress Test: yes; abnormal INFERIOR AND LATERAL 11:59:57 Patient received from Pre/Post Procedure Room to CCL 1 Alert and oriented. Tansferred to table in Supine position. 11:59:58 Warm blankets applied, and tracey hugger turned on for patient comfort. 11:59:58 Correct patient and procedure confirmed by team. 11:59:59 ECG and BP/O2 sat monitors applied to patient. 12:00:01 Vital chart was started 12:00:04 Baseline sample Acquired. 12:00:09 Rhythm: sinus bradycardia 12:00:11 Full Disclosure recording started 12:02:03 0.9% NaCl 100 ml/hr I.V. was administered by Ifrah Gilbert RN; used for procedure; Verbal order read back and verified. 12:02:09 Oxygen 2 l/min etCO2 Nasal cannula was administered by Ifrah Gilbert RN; used for procedure; Verbal order read back and verified. 12:02:14 Lidocaine 2% 20ml vial added to field was administered by Wilson Velarde MD; for local anesthetic; Verbal order read back and verified. 12:02:18 Heparin Flush Bag (1000units/500ml NS) 2 bags added to field was administered by Wilson Velarde MD; used for procedure; Verbal order read back and verified. 12:02:20 Pre-procedure instructions explained to patient. 12:02:21 Pre-op teaching completed and patient verbalized understanding. 12:02:23 Family unavailable. 12:02:24 Patient NPO since Midnight. 12:02:33 Is the patient allergic to Iodine/contrast media? No. 12:02:34 Is patient on blood thinner?No 12:02:36 Patient diabetic? No. 12:02:38 Previous problem with sedation/anesthesia? No ? 12:02:40 Snore? Yes 12:02:41 Sleep apnea? No 12:02:41 Deviated septum? No 12:02:42 Opens mouth fully? Yes 12:02:43 Sticks out tongue? Yes 12:02:45 Airway obstruction? No ? 12:02:51 Dentures? No BRIDGE 12:02:55 Pre procedure: right dorsailis pedis pulse 1+ Palpable, but thready & weak; easily obliterated 12:02:58 Patient pain scale 0/10 ?. 12:03:12 IV patent on arrival in left forearm with 0.9% NaCl at [facility]. 12:03:16 Lab results completed and on chart. 12:03:19 Right groin area was prepped with chlora-prep and draped in sterile fashion 12:03:20 Alarms reviewed by R. N. 12:03:20 Sharps counted by scrub and verified by R.N. 12:05:03 Use device set Femoral Dx 12:05:04 ACIST Syringe (57007) opened to sterile field. 12:05:04 Bag Decanter (2002S) opened to sterile field. 12:05:09 ACIST Hand Control (52792) opened to sterile field. 12:05:09 ACIST Manifold (23120) opened to sterile field. 12:05:10 Tegaderm 4 x 4 (1626W) opened to sterile field. 12:05:11 Medline Cath Pack ([id number]) opened to sterile field. 12:05:12 DIAGNOSTIC Multipack 5Fr catheter set (AL7225) opened to sterile field. 12:05:17 SHEATH 5FR [place] (MJE723) opened to sterile field. 12:05:18 EMERALD Guide Wire (508-094) opened to sterile field. 12:07:15 Risk of Mortality: .1 12:07:17 Risk of blood transfusion: 1.3 12:07:20 Risk of KAREN: 1.2 12:08:07 --------ALL STOP TIME OUT------ 12:08:07 Final Timeout: patient, procedure, and site verified with staff and physician. All members of the team are in agreement. 12:08:09 Right groin site verified by team. 12:08:11 Fire Safety Assessment: A--An alcohol-based skin anteseptic being used preoperatively., C--Open oxygen or nitrous oxide is being used., D--An ESU, laser, or fiber-optic light is being used. 12:08:14 Physical assessment completed. ASA score P 2 - A patient with mild systemic disease as per Wilson Velarde MD. 12:08:17 2) 60-89 Mildly reduced kidney function, and other findings (as for stage 1) point to kidney disease. 12:08:20 Maximum allowable contrast dose (3.7 X eGFR X 0.75)200 ml. 12:08:26 Sedation plan: IV Moderate Sedation Medication:Versed, Fentanyl 12:09:47 Versed 2 mg I.V. was administered by Ifrah Gilbert RN; for sedation; Verbal order read back and verified. 12:09:54 Fentanyl 50 mcg I.V. was administered by Ifrah Gilbert RN; for sedation; Verbal order read back and verified. 12:10:18 Procedure started. 12::21 Local anesthetic to right femoral vein with Lidocaine 2% by Wilson Velarde MD.INITIAL ACCESS ONLY 12:11:27 Zero performed for pressure channel P1 12:11:41 A 5 Fr sheath was inserted into the Right Femoral artery 12::27 A MULTIPACK Pigtail 5 Fr catheter was advanced over the wire and used for Procedure. 12:12:49 LV gram done using GUZMAN 12::53 Injector settings: Ml/sec: 10, Volume: 20, 12:13:04 EF : 50 % 12:13:07 Catheter removed. 12:13:51 A MULTIPACK JL 4.0 5Fr catheter was advanced over the wire and used for Procedure. 12:14:36 Versed 2 mg I.V. was administered by Ifrah Gilbert RN; for sedation; Verbal order read back and verified. 12:14:42 Fentanyl 50 mcg I.V. was administered by Ifrah Gilbert RN; for sedation; Verbal order read back and verified. 12:14:46 LCA angiography performed. 12:14:47 Catheter removed. 12:14:57 A MULTIPACK 3DRC 5Fr catheter was advanced over the wire and used for Procedure. 12:16:36 MARTIN to Circ angiography performed. 12:17:07 RCA angiography performed. 12:17:10 Catheter removed. 12:17:21 Proceeding to intervention. 12:18:00 A DIAGNOSTIC AR2 MOD 5 Fr catheter ([id number]) was advanced over the wire and used for Procedure. 12:20:00 Heparin Bolus 4000 units I.V. was administered by Ifrah Gilbert RN; for anticoagulation; verified with Dr. Velarde Verbal order read back and verified. 12:20:13 Catheter removed. 12:20:14 Integrilin (Bolus 2mg/ml) 7.3 ml I.V. was administered by Ifrah Gilbert RN; for antiplatelet therapy; Verbal order read back and verified. 12:20:49 ACCDominant side:Co-Dominant 12:21:19 SHEATH 6FR [place] (PWV331) opened to sterile field. 12:21:20 INFLATOR Merit BasixCompak (ZQ6849) opened to sterile field. 12:21:20 CHOICE PT Extra Support 182cm wire ([id number]) opened to sterile field. 12:21:20 Swayzee Verrata Plus pressure wire (83507Q) opened to sterile field. 12::29 Sheath upsized to a 6 Fr Short. 12:21:42 GUIDE 6FR XB 3.5 catheter ([id number]) opened to sterile field. 12:22:17 6 Fr XB 3.5 guide catheter was inserted over the wire 12:22:57 FFR/IFR wire advanced. 12::57 Wire advanced across lesion. 12:23:09 mLAD lesion measured at .74 with IFR 12:23:25 Pre PCI Site: [place] LAD has 75% stenosis. 12:23:32 ACC Pre-intervention AIME Flow is 3. 12:24:44 Place stent Inflation Number: 1 A NELIA RX 2.5 x 18 stent ([id number]) was prepped and advanced across the Mid LAD . The stent was deployed at 17 KAMAR for 0:00 (min:sec) . 12:24:58 Stent catheter was removed intact over wire. 12:25:21 Wire removed. 12:25:22 Guide catheter removed. 12:25:37 GUIDE 6FR HS II catheter ([id number]) opened to sterile field. 12:25:44 6 Fr HS 2 guide catheter was inserted over the wire 12:27:19 FFR/IFR wire advanced. 12:27:19 Wire advanced across lesion. 12:27:25 mRCA lesion measured at .76 with IFR 12:27:48 Pre PCI Site: [place] RCA has 70% stenosis. 12:28:45 Place stent Inflation Number: 1 A NELIA RX 3.0 x 22 stent ([id number]) was prepped and advanced across the Mid RCA . The stent was deployed at 13 KAMAR for 0:00 (min:sec) . 12:28:56 Stent catheter was removed intact over wire. 12:29:03 Wire removed. 12:29:03 Guide catheter removed. 12:29:12 EXOSEAL 6Fr (EX600) opened to sterile field. 12:30:01 Sheath removed intact; hemostasis achieved with Exoseal to the Right Femoral artery. 12:30:03 Procedure ended.(Physican Out) 12:31:05 Fluoroscopy time 05.40 minutes. 12:31:10 Flurop Dose total: 810 12:31:10 Fluoroscopy dose: 810 mGy 12:31:17 Dose Area Product 88090 mGy/cm. 12:31: Contrast amount:Isovue 300 132ml. 12:31:24 Maximum allowable dose exceeded? No. 12:: Sharps counted by scrub and verified by R.N. 12:34:26 Integrilin (Bolus 2mg/ml) 2.7 ml wasted was administered by Ifrah Gilbert RN; for antiplatelet therapy; Verbal order read back and verified. 12:34:32 Plavix 600 mg P.O. was administered by Ifrah Gilbert RN; for antiplatelet therapy; Verbal order read back and verified. 12:35:07 Post-op/insertion site Right Femoral artery dressed using a 4 x 4 and Tegaderm. 12:35:13 Post-procedure physical assessment completed. ASA score P 2 - A patient with mild systemic disease as per Wilson Velarde MD. 12:35:24 ACT drawn and resulted at 265 seconds. (normal therapeutic range 180-240 seconds). 12:35:37 Post procedure rhythm: sinus rhythm 12:35:39 Estimated blood loss: 10 ml 12:35:41 Post procedure instruction explained to patient.Patient verbalizes understanding. 12:35:41 Patient needs reinforcement of post procedure teaching. 12:37:38 Procedure and supply charges have been captured, reviewed, submitted and are correct. 12:37:41 Procedure Complication : No complications 12:37:44 Vital chart was stopped 12:37:47 [facility] Findings: MVD- PCI performed (see procedure note) 12:37:48 Operative report dictated upon procedure completion. 12:37:48 See physician's report for complete and final results. 12:37:52 Report given to Pre/Post Procedure Room. 12:37:55 Patient transfered to Pre/Post Procedure Room with Bed. 12:37:58 Procedure ended. 12:37:58 Full Disclosure recording stopped 12:38:02 End room use (Document Last) 12:38:21 ACC-PCI Only Patient was given prescriptions, or instructed by Wilson Velarde MD to start/continue the following medications upon discharge: Plavix Intervention Summary Intervention Notes Time ActionType Lesion and Equipment Used Action# Pressure Duration Attributes 12:24:44 Place stent Mid LAD NELIA RX 2.5 x 1 17 00:00 18 stent ([id number]) 12:28:45 Place stent Mid RCA NELIA RX 3.0 x 1 13 00:00 22 stent ([id number]) Device Usage Item Name Manufacture Quantity Catalog Number Hospital Part Current Minimal Lot# / Charge Number Stock Stock Serial# Code ACIST Syringe Acist 1 02670 655357 185427 763204 20 (00014) Medical Systems DokDok Bag Decanter Microtek 1 2001S 236180 53482 171944 5 (2001S) Medical Inc. ACIST Hand Acist 1 93560 893734 222149 316603 5 Control Medical (48524) Systems Inc ACIST Manifold Acist 1 04253 206794 635821 736294 5 (61875) Medical Systems Inc Tegaderm 4 x 4 3M 1 1626W 083581 209227 442701 5 (1626W) Medline Cath Medline 1 [id number] 569329 02345 950326 5 Pack ([id number]) DIAGNOSTIC Cardinal 1 SH3865 060195 35671 430621 30 Multipack 5Fr Health catheter set (FP9946) SHEATH 5FR Terumo 1 RYZ430 532209 885035 639988 5 [place] (ZOZ986) EMERALD Guide Cardinal 1 502-455 580279 328148 884100 5 Wire (502-455) Health MULTIPACK Cardinal 1 564979 5 Pigtail 5 Fr Health catheter MULTIPACK JL Cardinal 1 128567 5 4.0 5Fr Health catheter MULTIPACK 3DRC Cardinal 1 313412 5 5Fr catheter Health DIAGNOSTIC AR2 Cardinal 1 [id number] 795032 853290 294325 20 MOD 5 Fr Health catheter (109785A) SHEATH 6FR Terumo 1 XKV652 966435 105588 201840 40 [place] (ACX607) INFLATOR Merit Merit 1 QK6114 991157 527874 547949 15 [facility] Medical (YJ3964) CHOICE PT [place] Pool 1 [id number] 688985 705353 796329 5 Extra Support Scientific 182cm wire (5827717D3) Swayzee Swayzee 1 81798L 777355 135588035 958897 5 Verrata Plus pressure wire (72355W) GUIDE 6FR XB Cardinal 1 [id number] 797611 163798 732719 2 3.5 catheter Health (36822660) NELIA RX 2.5 x Medtronic 1 [id number] 531416 4493643 534248 5 [id number] 18 stent ([id number]) GUIDE 6FR HS Medtronic 1 [id number] 936722 58579 925548 1 II catheter (OE0DJJK) NELIA RX 3.0 x Medtronic 1 [id number] 172090 1209121 423649 5 [id number] 22 stent ([id number]) EXOSEAL 6Fr Cardinal 1 EX600 842656 721687 797437 10 (EX600) Health Signature Audit Vancourt Stage Time Signature Unsigned Intra-Procedure 09/21/2019 Aspen Stern 12:41:11 PM RT(R) Intra-Procedure 09/21/2019 Ifrah Gilbert 12:41:28 PM RN Intra-Procedure 09/21/2019 Wilson Velarde 12:41:49 PM [facility] [address] [place] [address]
[2019-09-21] MEDS ORDERED: LISINOPRIL20 MG PO (08:46)
[2019-09-21 09:05] VITALS: BP 134/74; Ht 162.6 cm; Wt 81.4 kg
[2019-09-21 09:25] LABS: BASOPHILS 0.6 % (0-2); EOSINOPHILS 8.5 % (0-7); HEMATOCRIT 48.1 % (42.0-54.0); HEMOGLOBIN 15.9 g/dL (13.5-17.5); IMMATURE GRANULOCYTES 0.3 % (0-5); LYMPHOCYTES 26.8 % (15-50); MCH 31.3 pg (26.0-34.0); MCHC 33.1 g/dL (31.0-37.0); MCV 94.7 fL (80.0-100.0); MEAN PLATELET VOLUME 9.7 fL (7.4-10.4); MONOCYTES 13.2 % (2-11); NEUTROPHILS 50.6 % (40-80); PLATELET COUNT 181 10x3/uL (130-400); RBC 5.08 10x6/uL (4.20-6.10); RDW 12.6 % (11.5-14.5)
[2019-09-21 09:28] LABS: ANION GAP 10.2 mmol/L (8-16); CALCIUM 8.7 mg/dL (8.5-10.1); CHOL - HDL RATIO 6.2 ratio (2.3-4.9); CREATININE - SERUM 1.1 mg/dL (0.6-1.3); LDL-HDL RATIO 2.8 ratio (1.5-3.5); POTASSIUM - SERUM 4.2 mmol/L (3.5-5.1)
--- NOTE | 2019-09-21 12:50 | NUR ---
REC TO ROOM VIA STRETCHER FROM [employer] [address] [employer]. MONITORING INITIATED. R GROIN CDI, SOFT, W TEGADERM AND 4X4 OVER ACCESS SITE. PPP. BP 129/74, NSR 62, SAT 99% ON RA. PT DROWSY, REMINDED KEEP HEAD ON PILLOW AND RLE STRAIGHT AND STILL.
--- NOTE | 2019-09-21 13:05 | NUR ---
DR VASQUEZ HERE TO SPEAK W PT, ANSWERED QUESTIONS.
[2019-09-21] MEDS ORDERED: PLAVIX75 MG PO (13:24)
--- NOTE | 2019-09-21 13:35 | NUR ---
R GROIN CDI, NO S/S BLEEDING OR HEMATOMA. PPP.
--- NOTE | 2019-09-21 13:35 | NUR ---
R GROIN SOFT, NO S/S BLEEDING OR HEMATOMA. NSR 65, BP 120/74, SAT 99% ON 2LNC. REMAINS DROWSY. ROUSES TO TOUCH AND/OR VERBAL STIMULUS.
--- NOTE | 2019-09-21 13:50 | NUR ---
R GROIN CDI, SOFT. NO S/S BLEEDING OR HEMATOMA. BP 112/63, NSR 62, SAT 99% 2LNC. REMINDED KEEP HEAD RELAXED ON PILLOW AND RLE STRAIGHT AND STILL.
--- NOTE | 2019-09-21 14:18 | NUR ---
R GROIN SOFT, CDI. NO S/S BLEEDING OR HEMATOMA. REMAINS DROWSY, ROUSING MORE EASILY, APPROPRIATE WHEN WAKENS. SB 58, BP 107/63. PPP.
--- NOTE | 2019-09-21 14:50 | NUR ---
R GROIN CDI, SOFT. NO S/S BLEEDING OR HEMATOMA. VOIDED 550 ML CLEAR MED YELLOW URINE INTO URINAL. SB 55, BP 124/74, SAT 98% RA W O2 DC. INSTRUCTED 40 MINUTES MORE OF STRICT LYING FLAT, THEN WILL SIT UP HOB. VERBALIZES UNDERSTANDING. DISCUSSED DR VASQUEZ SPEAKING W HIM, REMEMBERS HIM SAYING HE PLACED 2 STENTS AND DISCUSSING CESSATION OF SMOKELESS TOBACCO USE.
--- NOTE | 2019-09-21 15:20 | NUR ---
R GROIN SOFT, NO S/S BLEEDING OR HEMATOMA. BP 125/66. SB59. SAT 95% RA. HOB RAISED FOR PT COMFORT, HAS COKE AND SANDWICH.
--- NOTE | 2019-09-21 15:47 | NUR ---
IMMANUEL SANDWICH AND SODA. R GROIN SOFT, NO S/S BLEEDING OR HEMATOMA. BP 119/63, SB 57, RR 14.
--- NOTE | 2019-09-21 16:00 | NUR ---
R GROIN CDI, NO S/S BLEEDING OR HEMATOMA. IV DC TIP INTACT. MONITORING DISCONTINUED. PT DRESSING.
--- NOTE | 2019-09-21 16:30 | NUR ---
DC INSTRUCTIONS DISCUSSED, INCLUDING NEW RX PLAVIX. VERBALIZES UNDERSTANDING OF IMPORTANCE OF GETTING RX FILLED AND STARTING PLAVIX AT HOME TOMORROW. DC HOME VIA WHEELCHAIR TO PRIVATE CAR W FRIEND. PT HAS ALL BELONGINGS.
--- NOTE | 2019-09-23 09:52 | OP ---
PATIENT NAME: MAGGY UP MEDICAL RECORD: [id number] :57 LOCATION:D.CAT ADMISSION DATE: SURGEON: LINUS VASQUEZ MD DATE OF OPERATION: 09/21/2019 DATE OF SERVICE: 09/21/2019 PROCEDURES: 1. PTCA stent RCA. 2. PTCA stent LAD. 3. IFR RCA. 4. IFR LAD. 5. Left heart catheterization. 6. Selective coronary angiography. 7. Left ventriculogram. 8. MARTIN angiography. INDICATION: Angina and coronary artery disease. PROCEDURE IN DETAIL: After informed consent was obtained and after detailed explanation of risks, benefits as well as alternative therapies, the patient elected to proceed with angiogram and angioplasty. The right femoral area was prepped and draped in normal sterile fashion. Right femoral artery was cannulated via modified Seldinger technique with placement of 6-Sinhala sheath. All catheters exchanged through this sheath. FINDINGS: Left ventriculogram was performed in the standard 30-degree GUZMAN view reveals good cardiac wall motion, ejection fraction estimated at 60%. SELECTIVE CORONARY ANGIOGRAPHY: 1. Left main is with no significant angiographic disease. 2. Left anterior descending has a previously placed stent. There is 70% stenosis proximal to the previously placed stent. An IFR is abnormal. The LAD is not grafted. 3. Left circumflex has 80% to 90% stenosis throughout the proximal vessel. 4. MARTIN to the circumflex is widely patent. Distal circumflex is widely patent after the graft. 5. The right coronary has 70% stenosis in the mid vessel. IFR was abnormal. DRAWING IN HAND STENT OF THE LAD: The stent used was a 2.5 x 18 mm [place]. Result was 0% residual stenosis. PTCA STENT OF THE RCA: The stent used was a 3.0 x 22 mm [place]. Result was 0% residual stenosis. OVERALL IMPRESSION: Successful percutaneous transluminal coronary angioplasty stent of the left anterior descending and right coronary artery, both going from 70% initial stenosis with abnormal IFR to 0% residual. TRANSINT:[id number] Voice Confirmation ID: [id number] DOCUMENT ID: [id number] OPERATIVE REPORT [id number] ANNELMAGGY Phan LINUS RAY MD at 0952 CC: [id number] DICTATION DATE: 09/21/19 1239 CORRECTIONAL PROBATION OFFICER: 09/21/19 1309 DEP CLI 09/21/19 [facility] [address] [place] [id number]
--- NOTE | 2019-09-23 09:52 | HP ---
PATIENT: MAGGY DARBY MEDICAL RECORD: [id number] ACCOUNT: [id number] LOCATION:[facility] : 57 ADMISSION DATE: 09/21/19 PCP: DC MOSS MD HISTORY AND PHYSICAL EXAMINATION DIAGNOSES: 1. Angina. 2. Abnormal nuclear stress test. 3. Hypertension. 4. Hyperlipidemia. HISTORY OF PRESENT ILLNESS: Mr. Darby presents with increasing anginal symptomatology. Nuclear stress test is abnormal with inducible ischemia, now brought for cardiac catheterization. PHYSICAL EXAMINATION: CONSTITUTIONAL/GENERAL APPEARANCE: Well nourished, well developed, appears stated age. EYES: Lids and conjunctivae noninjected. No discharge. No pallor. ENT: Lips within normal limit. No cyanosis. No pallor. NECK: Carotid arteries, bilateral normal upstroke. No bruits. No thrills. No jugular venous pressure or distention. CERVICAL LYMPH NODES: Nontender. Nonenlarged. THYROID: Not enlarged. No nodules. CARDIOVASCULAR: Precordial exam, nondisplaced. No heaves or pericardial thrills. Rate and rhythm, regular. Heart sounds, normal S1, normal S2. No S3, no gallop, no rub. Systolic murmur, not heard. Diastolic murmur, not heard. RESPIRATORY: Respiratory effort, unlabored. Normal curvature. No thoracic deformity. No chest wall tenderness. Percussion, resonant. Auscultation, clear. No wheezes, no rales, no rhonchi. ABDOMEN: Soft, nondistended, nontender. No abdominal pain, no vomiting and normal appetite. MUSCULOSKELETAL: No joint tenderness, normal gait, normal tone. SKIN: Warm and dry. OVERALL IMPRESSION: Anginal symptomatology with abnormal nuclear stress test. We will proceed with coronary angiography. Further care depends upon the findings of the angiography. TRANSINT:[id number] Voice Confirmation ID: [id number] DOCUMENT ID: [id number] LINUS VASQUEZ MD at 0952 CC: [id number] DICTATION DATE: 09/21/19 1043 LABORATORY DEVELOPMENT TECHNICIAN: 09/21/19 1054 DEP CLI 09/21/19 [place] [address]
== END 2019-09-21 16:30 | disposition home or self-care (01) ==
LOC: D.CATH 07:40
PROVIDERS: ATTEND Internal Medicine Interventional Cardiology
DX: I25.119 Atherosclerotic heart disease of native coronary artery with unspecified angina pectoris (principal); R94.39 Abnormal result of other cardiovascular function study; I10 Essential (primary) hypertension; E78.5 Hyperlipidemia, unspecified